=== PATIENT | female | born 1965 | race Caucasian/White ===

== ENCOUNTER 2016-07-20 22:12 | Emergency (ER) | payer MEDICARE, MEDICAID ==
[~2016-07-20] VITALS: Ht 167.6 cm; Wt 81.6 kg
--- OUTSIDE RECORDS SUMMARY | 2016-07-20 22:19 | XMS REPORT | Continuity of Care Document ---
Demographics Preferred Language Unknown Marital Status Unknown Pentecostal Affiliation Unknown Race Unknown Ethnic Group Unknown Author Author [facility] Address Unknown Phone Unavailable Allergies Active Description Code Type Severity Reaction Onset Reported/Identified Relationship to Patient Clinical Status Yes sulfa Drug Allergy 07/06/2012 Medications Problems Date Dx Coded Attending Type Code Diagnosis Diagnosed By 07/06/2012 272.4 HYPERLIPIDEMIA 07/06/2012 493.90 ASTHMA UNSPECIFIED 07/06/2012 535.50 GASTRITIS UNSPEC 07/06/2012 564.1 IRRITABLE BOWEL SYNDROME 07/06/2012 724.2 BACK PAIN, LOWER Procedures Results Encounters ACCT No. Visit Date/Time Discharge Status Pt. Type Provider Facility Loc./Unit Complaint [id number] 07/06/2012 08:55:00 07/06/2012 23: 59:59 CLS Outpatient
[2016-07-20] MEDS ORDERED: CEFD300C3 PO (23:22)
[2016-07-20] MEDS ORDERED: METH4TAB PO (23:22)
[2016-07-20] MEDS ORDERED: MAGIC MOUTHWASH MT (23:22)
--- NOTE | 2016-07-20 23:22 | ED EENT ---
History of Present Illness General Chief Complaint: Oral/Throat Problems Stated Complaint: DENTAL PAIN,SORE THROAT Nursing Triage Note: PT TO ED 7 W/ DAUGHTER FOR C/O THROAT ET TONGUE PAIN. REPORTS SHE HAS A SORE ON HER TONGUE Source: patient (DIFFICULT HISTORIAN AND GIVES VERY CONVOLUTED INFORMATION), old records (SINGLE PSYCH ADMIT DISCHARGE SUMMARY FROM 2005) History of Present Illness Time seen by provider: 22:25 Initial Comments MOM AND CHILD BEING SEEN FOR SIMILAR PROBLEMS C/O SORE THROAT AND COUGH/CONGESTION FOR A FEW DAYS NO FEVER ALSO C/O SORE ON LEFT SIDE OF TONGUE X 4 DAYS NO SHORTNESS OF BREATH PT AND CHILD CURRENTLY HOMELESS PT STATES SHE IS "RELOCATING FROM [place]" IN THE LAST COUPLE OF WEEKS STATES SHE GOT KICKED OUT OF [facility] IN [place], AND SOMEHOW ENDED UP HERE PT WAS HOSPITALIZED AT [facility] FOR 8 DAYS, AND GOT OUT A FEW DAYS AGO--"FOR DEPRESSION" STATES SHE WAS STARTED ON ABILIFY, AND WELLBUTRIN DOSE WAS CHANGED. DID NOT DIRECTORY CARRIER THESE RX'S PT STATES SHE WAS ALSO STARTED ON ADVAIR WHILE THERE FOR ASTHMA--STATES SHE DOES HAVE THAT, BUT HAS NOT USED TODAY PT ALSO WANTS REFILL ON HER ALBUTEROL INHALER--STATES SHE IS ABOUT TO RUN OUT. CLAIMS SHE DOES HAVE A SPACER. STATES SHE AND DAUGHTER HAVE BOTH BEEN USING THE SAME INHALER DOES HAVE NEBULIZER AND MEDICATIONS FOR NEBULIZER BUT HAS NOT BEEN USING THEM PT STATES "I JUST GOT MY DISABILITY IN THE MAIL YESTERDAY" Allergies and Home Medications Allergies Coded Allergies: Sulfa (Sulfonamides) (Verified Allergy, Unknown, 08/02/05) Home Medications #60 5 ML MT Q4H Prescribed by: ANNAMARIA NEWMAN on 07/20/162321 Albuterol Sulfate 8.5 Gm Hfa.aer.ad #1 2 PUFF IH Q4H Prescribed by: ANNAMARIA NEWMAN on 07/20/16 233 Cefdinir 300 Mg Capsule #20 300 MG PO BID Prescribed by: ANNAMARIA NEWMAN on 07/20/162321 Methylprednisolone 4 Mg Tab.ds.pk #1 4 MG PO UD Prescribed by: ANNAMARIA NEWMAN on 07/20/162321 Review of Systems Constitutional: no symptoms reported other (VERY DIFFICULT TO OBTAIN INFORMATION) Eyes: No Symptoms Reported Ears: No Symptoms Reported Nose: congestion Mouth: see HPI Throat: see HPI Respiratory: see HPI cough short of breath wheezing Cardiovascular: no symptoms reported Gastrointestinal: no symptoms reported : No (ON MENSTRUAL CYCLE NOW, BUT HAD NOT HAD ONE IN 4 MONTHS--PT HAS HAD BTL) LMP: Jul 20, 2016 Musculoskeletal: no symptoms reported Skin: no symptoms reported Neurological: See HPI Hematologic/Lymphatic: Anemia (STATES SHE RECEIVED A TRANSFUSION WHILE AT [facility], BEFORE SHE COULD GO TO THE [facility]. ) Immunological/Allergic: no symptoms reported Past Hulxksz-Ltjglz-Dzmgpk Hx Patient Social History Alcohol Use: Denies Use Recreational Drug Use: Yes (COCAINE ABUSE BY HISTORY) Smoking Status: Current Everyday Smoker (<1 PPD, RECENTLY STARTED VAPOR CIGARETTES) Type Used: Cigarettes, Electronic/Vapor Recent Foreign Travel: No Contact w/Someone Who Travel: No Recent Infectious Disease Expo: No Recent Hopitalizations: Yes ([facility] END OF JUN 2016) Surgeries HX Surgeries: Yes ( X 2, ) Surgeries: Appendectomy, Section, Gallbladder, Tubal Ligation Respiratory Hx Respiratory Disorders: Yes Respiratory Disorders: Asthma Cardiovascular Hx Cardiac Disorders: Yes Cardiac Disorders: High Cholesterol, Hypertension Neurological Hx Neurological Disorders: No Reproductive System : No Female Reproductive Disorders: Menstrual Problems (IRREGLAR PERIODS) LINESPERSON History: Tubal Ligation Genitourinary Hx Genitourinary Disorders: No Gastrointestinal Hx Gastrointestinal Disorders: Yes (S/P ONESIMO) Gastrointestinal Disorders: Gastroesophageal Reflux, Gall Bladder Disease Musculoskeletal Hx Musculoskeletal Disorders: Yes (CHRONIC PAIN COMPLAINTS IN PAST) Endocrine Hx Endocrine Disorders: No HEENT HX ENT Disorders: No Cancer Hx Cancer: No Psychosocial Hx Psychiatric Problems: Yes (SUICIDAL IDEATIONS IN PAST WITH MULTIPLE PSYCH ADMITS. ) Behavioral Health Disorders: Anxiety, Depression Integumentary HX Skin/Integumentary Disorder: No Blood Transfusions Hx Blood Disorders: Yes (ANEMIA) Hx of Blood Transfusion YES--06/2016 AT [facility] Adverse Reaction to a Blood Tr: No Physical Exam Vital Signs Vital Sign - Last 12Hours 07/20/16 22:20 Temp 98.1 Pulse 107 Resp 20 B/P 101/76 Pulse Ox 99 O2 Delivery Room Air General Appearance: WD/WN no apparent distress other (TALKS NON-STOP, SPEECH ERRATIC AND SOMEWHAT THICK-TONGUED, AND VERY DIFFICULT TO KEEP ON SUBJECT. CONSTANT MOVEMENTS OF BODY AND MOUTH. FULL HEAVY MAKE UP AND PERFUME. ) Eyes: bilateral eye EOMI, bilateral eye PERRL, bilateral eye normal inspection Ears: bilateral ear TM normal, bilateral ear auricle normal, bilateral ear canal normal Nose: normal inspectionNo sinus tenderness Mouth/Throat: No tongue swollen, No tonsillar exudate, other (1 CM ULCERATION TO LEFT LATERAL ASPECT OF TONGUE. PHARYNX MILDLY INFLAMED WITH CLEAR POST NASAL DRAINAGE. 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 no motor/sensory deficits alert oriented x 3 Skin: normal color warm/dry Progress/Results/Core Measures Results/Orders Lab Results Laboratory Tests Test 07/20/16 22:25 Range/Units Group A Streptococcus Screen NEGATIVE NEGATIVE My Orders Orders-ANNAMARIA NEWMAN DO Rapid Strep A Screen (07/20/16 22:25) Cefdinir Capsule (Omnicef Capsule) (07/20/16 23:30) Medications Given in ED Current Medications Medications Dose Ordered Sig/Teena Route Start Time Stop Time Status Last Admin Dose Admin Cefdinir 300 mg ONCE ONCE PO 07/20/16 23:30 07/20/16 23:31 DC 07/20/16 23:37 300 MG Vital Signs/I&O Vital Sign - Last 12Hours 07/20/16 22:20 Temp 98.1 Pulse 107 Resp 20 B/P 101/76 Pulse Ox 99 O2 Delivery Room Air Blood Pressure Mean: 84 Progress Note : Progress Note PT WAS GIVEN INFORMATION ON [facility] AND PT WAS ON PHONE WITH THEM DURING ER STAY. Departure Impression Impression: Primary Impression: Pharyngitis Additional Impressions: Tongue ulceration Laryngitis Disposition: 01 HOME, SELF-CARE Condition: Stable Departure-Patient Inst. Referrals: NO,LOCAL PHYSICIAN (PCP/Family) Primary Care Physician Patient Instructions: Laryngitis (DC), Mouth Sores (DC), Sore Throat, Adult (DC ) Add. Discharge Instructions: TYLENOL 1 GRAM AND MOTRIN 800 MG 4 TIMES A DAY NEEDED FOR PAIN OR FEVER USE YOUR ALBUTEROL INHALER NEEDED AND YOUR ADVAIR INHALER EVERY DAY FOLLOW UP WITH DR OF CHOICE IN 3-4 DAYS IF NO BETTER All discharge instructions reviewed with patient and/or family. Voiced understanding. Scripts Albuterol Sulfate (Proair Hfa)8.5 Gm Hfa.aer.ad2 Puff IH Q4H BREATHING #1 GM Prov:ANNAMARIA NEWMAN DO 07/20/16 [Magic Mouthwash] No Conflict Check5 Ml MT Q4H Pain #60 Prov:ANNAMARIA NEWMAN DO 07/20/16 Methylprednisolone (Medrol)4 Mg Tab.ds.pk4 Mg PO UD #1 PKG Prov:ANNAMARIA NEWMAN DO 07/20/16 Cefdinir 300 Mg [id number] Mg PO BID FOR INFECTION #20 CAP Prov:ANNAMARIA NEWMAN DO 07/20/16 ANNAMARIA NEWMAN DO Jul 20, 2016 23:22
[2016-07-20] MEDS ORDERED: CEFDINIR 300 MG (OMNICEF) CAP PO ONE (23:30)
[2016-07-20] MEDS ORDERED: RT-ALBUINH IH (23:38)
[2016-07-21 00:06] VITALS: BP 106/71
== END 2016-07-21 00:06 | disposition home or self-care (01) ==
LOC: EDUNIT# 22:12 → ER 22:15
DX: J02.9 Acute pharyngitis, unspecified (principal); J04.0 Acute laryngitis; K12.1 Other forms of stomatitis; R09.82 Postnasal drip; I10 Essential (primary) hypertension; J45.909 Unspecified asthma, uncomplicated; F17.210 Nicotine dependence, cigarettes, uncomplicated; Z59.0 Homelessness; Z79.899 Other long term (current) drug therapy
CPT/HCPCS: 87430; 99282